=== PATIENT | female | born 1990 | race African-American/Black ===

== ENCOUNTER 2016-07-20 16:34 | Emergency (ER) | payer MEDICAID ==
[~2016-07-20] VITALS: Ht 157.5 cm; Wt 54.0 kg
[2016-07-20 16:47] VITALS: BP 108/72
== END 2016-07-20 20:00 | disposition left against medical advice (07) ==
LOC: ER 18:05
DX: Z53.21 Procedure and treatment not carried out due to patient leaving prior to being seen by health care provider (principal)

== ENCOUNTER 2016-10-05 12:28 | Emergency (ER) | payer MEDICAID ==
[~2016-10-05] VITALS: Ht 162.6 cm; Wt 60.0 kg
[2016-10-05 12:30] VITALS: BP 132/87
== END 2016-10-05 18:55 | disposition left against medical advice (07) ==
LOC: ER 12:40
DX: Z53.21 Procedure and treatment not carried out due to patient leaving prior to being seen by health care provider (principal); J45.909 Unspecified asthma, uncomplicated; Z88.5 Allergy status to narcotic agent

== ENCOUNTER 2016-10-06 11:02 | Emergency (ER) | payer MEDICAID ==
[~2016-10-06] VITALS: Ht 157.5 cm; Wt 50.0 kg
[2016-10-06 11:03] VITALS: BP 111/77
[2016-10-06] MEDS ORDERED: TETANUS, DIPHTHERIA, PERTUSSIS VAC/PF 0.5ML (>7YR OLD) IM ONE (11:30)
[2016-10-06] MEDS ORDERED: IBUPROFEN 600MG TABLET PO ONE (11:30)
== END 2016-10-06 13:01 | disposition home or self-care (01) ==
LOC: ER 11:02
DX: S91.312A Laceration without foreign body, left foot, initial encounter (principal); J45.909 Unspecified asthma, uncomplicated; W45.8XXA Other foreign body or object entering through skin, initial encounter; Y93.89 Activity, other specified; Y92.89 Other specified places as the place of occurrence of the external cause; Y99.8 Other external cause status
CPT/HCPCS: 90471; 90715; 99283; X7700; Z7610; 96372

== ENCOUNTER 2016-11-15 06:51 | Emergency (ER) | payer MEDICAID ==
[~2016-11-15] VITALS: Ht 157.5 cm; Wt 54.0 kg
[2016-11-15] MEDS ORDERED: KETOROLAC 60MG/2ML VIAL IM STA (07:44)
[2016-11-15 08:21] LABS: BASOPHILS % 0.6 % (0.0-2.0); EOSINOPHILS % 3.6 % (0.0-5.0); HEMOGLOBIN. 11.5 g/dL (12.0-16.0); LYMPHOCYTES % 40.9 % (20.0-50.0); MEAN CORPUSCULAR HEMOGLOBIN 27.7 pg (28.0-32.0); MEAN PLATELET VOLUME 9.1 fl (7.4-10.4); MONOCYTES % 9.2 % (2.0-8.0); NEUTROPHILS % 45.7 % (40.0-76.0); PLATELET 219 x1000/uL (130-400); RED BLOOD CELL COUNT 4.17 mill/uL (4.2-5.4)
[2016-11-15 08:28] LABS: PROTHROMBIN TIME 10.8 sec (9.4-11.6)
[2016-11-15 08:37] LABS: CARBON DIOXIDE 26 mEq/L (21-32); CHLORIDE 110 mEq/L (98-107)
[2016-11-15 08:40] LABS: GLUCOSE URINE NEGATIVE (NEGATIVE); KETONES URINE NEGATIVE (NEGATIVE); LEUKOCYTE ESTERASE URINE 1+ (NEGATIVE); NITRITE URINE NEGATIVE (NEGATIVE); OCCULT BLOOD URINE 3+ (NEGATIVE); PROTEIN URINE 1+ (NEGATIVE); SPECIFIC GRAVITY URINE 1.027 (1.005-1.030); UROBILINOGEN URINE 0.2 E.U./dL (0.2-1.0)
[2016-11-15 08:41] LABS: CLARITY URINE CLOUDY (CLEAR); COLOR URINE AMBER (YELLOW)
[2016-11-15 09:10] LABS: *AMPHETAMINES SCREEN URINE NEGATIVE (NEGATIVE); *BARBITURATES SCREEN URINE NEGATIVE (NEGATIVE); *BENZODIAZEPINES SCREEN URINE NEGATIVE (NEGATIVE); *COCAINE SCREEN URINE NEGATIVE (NEGATIVE); METHADONE URINE SCREEN NEGATIVE (NEGATIVE); OPIATES URINE SCREEN NEGATIVE (NEGATIVE); PHENCYCLIDINE URINE SCREEN NEGATIVE (NEGATIVE)
[2016-11-15 09:33] LABS: CANNABINOID URINE SCREEN PRESUMTIVE POSITIVE (NEGATIVE)
[2016-11-15 09:45] VITALS: BP 120/71
== END 2016-11-15 09:46 | disposition home or self-care (01) ==
LOC: ER 07:11
DX: R10.2 Pelvic and perineal pain (principal); D25.9 Leiomyoma of uterus, unspecified; N39.0 Urinary tract infection, site not specified
CPT/HCPCS: 36415; 76830; 76856; 80053; 80305; 81001; 81025; 83690; 85025; 85610; 96372; 99285; J1885